=== PATIENT | male | born 1980 | race African-American/Black ===

== ENCOUNTER 2020-07-02 23:28 | Emergency (ER) | payer MEDICAID ==
[~2020-07-02] VITALS: Ht 170.2 cm; Wt 68.2 kg
[2020-07-03 00:26] LABS: GLUCOSE,POINT OF CARE 82 MG/DL (70-110)
[2020-07-03] MEDS ORDERED: LevETIRAcetam 1,000 MG in DEXTROSE 5%-WATER 100 ML IV ONE (00:30)
[2020-07-03] MEDS ORDERED: LORazepam 2 MG/ML VIAL IVP ONE (00:30)
[2020-07-03] MEDS ORDERED: GABA600T10 PO (00:31)
[2020-07-03] MEDS ORDERED: TOPI100T37 PO (00:31)
[2020-07-03 00:37] LABS: BASOPHILS % (AUTO) 0.2 % (0.0-2.0); EOSINOPHILS % (AUTO) 0.3 % (1.0-6.0); HEMOGLOBIN 14.1 g/dL (13.5-17.5); LYMPHOCYTES # (AUTO) 0.9 K/uL (1.0-4.8); LYMPHOCYTES % (AUTO) 14.9 % (22.0-44.0); MEAN CORPUSCULAR HEMOGLOBIN 30.1 pg (26.0-34.0); MEAN CORPUSCULAR HGB CONC 32.8 G/dL (31.0-37.0); MEAN CORPUSCULAR VOLUME 92 fL (80-100); MONOCYTES # (AUTO) 0.4 K/uL (0.1-1.0); MONOCYTES % (AUTO) 6.1 % (2.0-9.0); NEUTROPHILS # (AUTO) 4.8 K/uL (1.8-7.7); NEUTROPHILS % (AUTO) 78.5 % (40.0-70.0); PLATELET COUNT (AUTO) 333 K/uL (150-450); RED CELL DISTRIBUTION WIDTH 13.1 % (11.5-14.5)
[2020-07-03 00:47] LABS: CARBON DIOXIDE 30 mmol/L (22-29); CHLORIDE 103 mmol/L (98-107); POTASSIUM 3.5 mmol/L (3.5-5.1); SODIUM SERUM 141 mmol/L (136-145)
[2020-07-03 00:48] LABS: ANION GAP 8 mmol/L (8-16); CALCIUM, TOTAL 9.3 mg/dL (8.8-10.5); CREATININE 1.04 mg/dL (0.60-1.30); GLOMERULAR FILTR. RATE CALC > 60 mL/min (>60); GLUCOSE,RANDOM 75 mg/dL (70-110); UREA NITROGEN, BLOOD 7 mg/dL (7-18)
[2020-07-03 00:53] LABS: ALANINE AMINOTRANSFERASE 21 U/L (12-78); ALKALINE PHOSPHATASE 72 U/L (46-116); ASPARTATE AMINOTRANSFERASE 22 U/L (15-37); BILIRUBIN,TOTAL 0.3 mg/dL (0.1-1.0); TOTAL PROTEIN, SERUM 8.3 g/dL (6.4-8.2)
[2020-07-03] MEDS ORDERED: TOPIRAMATE 25 MG TABLET PO ONE (02:00)
[2020-07-03] MEDS ORDERED: TOPIRAMATE 100 MG TABLET PO ONE (02:15)
[2020-07-03 02:59] VITALS: BP 109/80
== END 2020-07-03 03:30 | disposition home or self-care (01) ==
LOC: EMS 23:29
DX: G40.909 Epilepsy, unspecified, not intractable, without status epilepticus (principal); E16.2 Hypoglycemia, unspecified; F17.210 Nicotine dependence, cigarettes, uncomplicated
CPT/HCPCS: 36415; 80053; 82962; 85025; 96374; 99283; G0480; J0712; J2060; J7060